=== PATIENT | male | born 1945 | race Caucasian/White ===

== ENCOUNTER 2019-11-03 08:32 | Inpatient (IN) ==
--- NOTE | 2019-10-15 13:29 | History & Physical Report ---
Date of Service October 15, 2019 Assessment & Plan (1) Neurogenic claudication due to lumbar spinal stenosis: At this time patient is failed extensive course of nonoperative care is progressive neurologic decline and inability to ambulate. Subsequently we are recommending L3-S1 lumbar decompression and fusion hopefully will avoid permanent neurologic sequelae. Risk benefits pros cons alternatives were outlined in detail. Present on Admission?: Yes History of Present Illness Chief Complaint: Back with bilateral leg pain and weakness Primary Care Provider: Niranjan Faye, This is a 74-year-old male that presents with worsening back pain with bilateral leg pain and weakness. His ability to stand and ambulate for any distance is compromised secondary to pain and weakness. He has failed extensive course of nonoperative care. Allergies Allergy/AdvReac Type Severity Reaction Status Date / Time Gteiltf-Lvv-Cjb Reductase Allergy Verified 08/10/19 08:02 Inhibitor lisinopril AdvReac Intermediate HIVES/SWELL Verified 08/10/19 08:02 ING Home Medications Home Medications Medication Instructions Recorded Confirmed Type aspirin 81 mg tablet,delayed 81 mg PO DAILY tab 12/24/18 08/10/19 History release carvedilol 12.5 mg tablet 12.5 mg PO BID #180 tab 12/24/18 08/10/19 Rx isosorbide mononitrate 30 mg 30 mg PO DAILY #90 tab 12/24/18 08/10/19 Rx tablet,extended release 24 hr zaqzbgvxuund-ghwbulck-vgujrq 1 tab PO DAILY 12/24/18 08/10/19 History omeprazole 40 mg capsule,delayed 40 mg PO DAILY #90 cap 03/11/19 08/10/19 Rx release blood sugar diagnostic #100 ea 03/19/19 08/10/19 Rx levocetirizine 5 mg tablet 5 mg PO HS #90 tab 06/30/19 08/10/19 Rx metformin 500 mg tablet See Rx Instructions PO BID #270 tab 07/16/19 08/10/19 Rx hydrochlorothiazide 25 mg tablet 25 mg PO DAILY #90 tab 07/21/19 08/10/19 Rx cholestyramine (with sugar) 4 gram 4 gm PO BID #60 ea 08/11/19 Rx powder for susp in a packet terazosin 5 mg capsule 5 mg PO HS #90 cap 08/24/19 Rx lancets 33 gauge #100 ea 09/23/19 Rx diclofenac sodium 50 mg 50 mg PO DAILY PRN #30 tab 09/29/19 Rx tablet,delayed release tramadol 50 mg tablet 50 mg PO Q6H #60 tab 09/29/19 Rx Past Med/Surg History Social History (Updated 04/08/19 @ 08:19 by Caren Denise MA) marital status: Current Living Situation: Spouse current occupational status: retired Smoking Status: Former smoker Tobacco Type: cigarettes ; Hx Alcohol Use: Yes Alcohol type: beer Hx Substance Use: No Dental Care, Regularly: No Physical Activity Frequency: Does not Exercise Seatbelt Use: always Physical Exam Physical Exam: Patient is alert and oriented He ambulates with a stooped posture but must sit after short duration. He exhibits 4+/5 bilateral quadriceps and dorsiflexion. Sensory is symmetric and intact. Deep tendon reflexes are diminished. Heart is regular rate and rhythm Lungs clear to auscultation Results & Data Diagnostic Findings MRI lumbar spine demonstrates significant multilevel spondylosis with significant marked facet hypertrophy most impressive at L3-4 L4-5 and subarticular lateral recess stenosis.
--- NOTE | 2019-10-26 08:15 | Anesthesiology Consultation ---
Date of Service October 26, 2019 Assessment & Plan (1) Encounter for pre-operative examination: Cardiology Clearance 10/14/19 = "From a cardiac standpoint he is asymptomatic. If his aspirin needs to be stopped for his lumbar spine surgery this is reasonable. I see no cardiac contraindication for him proceeding with lumbar surgery." PCP Clearance 10/19/19 -- to be cleared pending results of blood work and CXR. COVID Status: As of 10/20 nurse assessment, patient denies travel to endemic area, known exposure/sick contacts, symptoms, or testing for coronavirus. Patient's son works in [facility]. He visited for Mother's Day, but did not have symptoms and kept 6 ft distance. BMP was not completed pre-op (PRP was run as RPR). Will need to be done AM DOS. Chart Review Chart Review: Acceptable Risk for Surgery (pending final PCP clearance) and Patient NOT seen in Pre Admission Testing History Surgery Operation Date: 11/03/19 12:45 Proposed Procedures p L3-S1 Decompression Fusion, Spinal Cord Monitoring - Sulaiman Argueta DO Height/Weight Height: 5 ft 9 in Weight: 114.759 kg Allergies Allergy/AdvReac Type Severity Reaction Status Date / Time lisinopril Allergy Intermediate HIVES/SWELL Verified 10/21/19 15:41 ING Nnmcjif-Dko-Avj Reductase AdvReac Muscle Pain Verified 10/21/19 15:41 Inhibitor Medications Home Medications Medication Instructions Recorded Confirmed Last Taken aspirin 81 mg tablet,delayed 81 mg PO DAILY tab 12/24/18 10/21/19 Unknown release carvedilol 12.5 mg tablet 12.5 mg PO BID #180 tab 12/24/18 10/21/19 Unknown znznxkievpuc-qildjakg-gsatkv 1 tab PO DAILY 12/24/18 10/21/19 Unknown blood sugar diagnostic #100 ea 03/19/19 10/19/19 Unknown levocetirizine 5 mg tablet 5 mg PO HS #90 tab 06/30/19 10/21/19 Unknown cholestyramine (with sugar) 4 gram 4 gm PO BID #60 ea 08/11/19 10/21/19 Unknown powder for susp in a packet terazosin 5 mg capsule 5 mg PO HS #90 cap 08/24/19 10/21/19 Unknown lancets 33 gauge #100 ea 09/23/19 10/19/19 Unknown diclofenac sodium 50 mg 50 mg PO DAILY PRN #30 tab 09/29/19 10/21/19 Unknown tablet,delayed release Fish Oil 1 cap PO DAILY 10/21/19 10/21/19 Unknown hydrochlorothiazide 25 mg PO QAM 10/21/19 10/21/19 Unknown isosorbide mononitrate 30 mg PO QAM 10/21/19 10/21/19 Unknown metformin 750 mg PO BID 10/21/19 10/21/19 Unknown omeprazole 40 mg PO QAM 10/21/19 10/21/19 Unknown tramadol 50 mg PO Q6H PRN 10/21/19 10/21/19 Unknown turmeric 1 dose PO DAILY 10/21/19 10/21/19 Unknown Past Medical History Medical History (Updated 10/26/19 @ 08:18 by Kevin Montgomery) CAD (coronary artery disease) (Chronic) 2017 cath showed "borderline stenosis in ostial LAD" managed medically. On imdur, no angina. Has been intolerant to statins. DM type 2 (diabetes mellitus, type 2) NIDDM GERD (gastroesophageal reflux disease) Hyperlipidemia Hypertension Osteoarthritis Past Family History Family History Father Hepatic cirrhosis Brother Myocardial infarction Other No family history of adverse response to anesthesia Past Surgical History Surgical History History of cardiac [facility]x [facility] - activity intolerance - no stents - follows w/ Dr. Daniel History of colonoscopy History of hip replacement bilateral History of knee replacement bilateral History of tooth extraction Social History Smoking Status: Former smoker tobacco type: cigarettes Do You Dip or Chew Tobacco: No Smoking End Date: QUIT 30 YEARS AGO Hx Alcohol Use: Yes Alcohol type: beer alcohol intake frequency: a few times a week Hx Substance Use: No substance use type: does not use Testing Laboratory Results 10/19/19 WBC: 5.72 H/H: 14.4/42.1 PLATELETS: 247 PT: 11.4 INR: 1.1 UA: negative Electrocardiogram Date: 10/19/19 Findings: + NSR @ (74bpm) Chest X-Ray Date: 10/21/19 IMPRESSION: 1. Chronic basilar predominant scarring suspected. No acute cardiac pulmonary disease. 2. Mild cardiomegaly without evidence of volume overload.
[~2019-11-03 08:32] MED LIST: ACETAMINOPHEN 500 MG TAB PO SCH; CEFAZOLIN 2000MG 2,000 MG/15 ML SYR IV SCH; CeleBREX 200 MG CAP PO SCH; DEXAMETHASONE SOD INJ 4 MG/ML VIAL ONE; GABAPENTIN 300 MG CAP PO SCH; HYDROmorphone INJ 2 MG/ML SYR/VIAL ONE; LIDOCAINE HCL 2% 2 ML VIAL/AMP(20MG/ML) INFIL ONE; LR 15ML/HR IV SCH; MIDAZOLAM HCL 1 MG/ML 2ML VIAL ONE; ONDANSETRON INJ 2 MG/ML 2 ML VIAL ONE; PROPOFOL IV EMULSION 10 MG/ML 20 ML VIAL IV ONE; ROCURONIUM BROMIDE 10 MG/ML 5 ML VIAL ONE; fentaNYL citrate 100 MCG/2 ML VIAL ONE
--- NOTE | 2019-11-03 09:22 | History & Physical Bridge Note ---
Date of Service November 03, 2019 History & Physical Bridge Note I have examined the patient, reviewed the History & Physical and in the interval since the performance of the History & Physical I have noted the following changes of clinical significance: no changes noted
[2019-11-03] MEDS ORDERED: HYDROmorphone INJ 2 MG/ML SYR/VIAL IV PRN (09:29)
[2019-11-03] MEDS ORDERED: ePHEDrine sulfate 50 MG/ML AMP IV PRN (09:29)
[2019-11-03] MEDS ORDERED: ONDANSETRON INJ 2 MG/ML 2 ML VIAL IV PRN ×2 (09:29→15:40)
[2019-11-03] MEDS ORDERED: ATROPINE SULFATE 0.1 MG/ML 10ML SYR IV PRN (09:29)
[2019-11-03] MEDS ORDERED: fentaNYL citrate 100 MCG/2 ML VIAL IV PRN (09:29)
[2019-11-03] MEDS ORDERED: BUPIVACAINE/EPINEPHRINE 0.25% 1:200,000 30 ML VIAL ONE (09:55)
[2019-11-03] MEDS ORDERED: BACITRACIN INJ 50,000 UNIT VIAL ONE (09:55)
[2019-11-03 10:01] LABS: BUN Creatinine Ratio 10.7 (10-20); Calcium 9.2 mg/dl (8.5-10.1); Creatinine Clr Calc Pharmacy 73.4 ml/min; Est GFR (African American) 78.3; Est GFR (Non-African American) 67.5; Potassium 3.8 mmol/L (3.5-5.1)
[2019-11-03] MEDS ORDERED: FLOSEAL HEMOSTATIC MATRIX 10ML TOP ONE (11:02)
[2019-11-03] MEDS ORDERED: ePHEDrine sulfate 50 MG/ML SYR ONE (11:14)
[2019-11-03] MEDS ORDERED: PHENYLEPHRINE 100MCG/ML 5ML SYR ONE ×2 (11:14→11:16)
[2019-11-03] MEDS ORDERED: NEOSTIGMINE METHYLSULFATE 5 MG/5 ML SYR ONE (11:48)
[2019-11-03] MEDS ORDERED: GLYCOPYRROLATE 0.2 MG/ML VIAL ONE (11:48)
[2019-11-03] MEDS ORDERED: ROCURONIUM BROMIDE 10 MG/ML 5 ML VIAL ONE (11:56)
--- NOTE | 2019-11-03 12:47 | Operative Report ---
Post Operative Report Pre & Post Diagnosis Operation Date: 11/03/19 10:15 Pre-Op Diagnosis: LUMBAR SPINAL STENOSIS W NEUROGENIC CLAUDICATION Post-Op Diagnosis: LUMBAR SPINAL STENOSIS W NEUROGENIC CLAUDICATION I identified the patient and participated in the time-out.: Yes Procedure Operation Date: 11/03/19 10:15 Actual Procedures #1 lumbar decompression with bilateral medial facetectomies and foraminotomies L2-3, L3-4, L4-5 and L5-S1. #2 posterior spinal fusion L3-4, L4-5 and L5-S1. #3 placement posterior segmental instrumentation from L3-S1. #4 interbody fusion L3-4 and L4-5. #5 peek cage 10 x 26 mm at L3-4 and 13 x 26 mm at L4-5 per #6 placement locally harvested morselized autograft in the posterior lateral gutters. #7 placement infuse collagen sponge, master graft in the posterior gutters and ostial amp interbody space. Surgeon Sulaiman Argueta, DO Suction Dredge Dumping Supervisor Jeannie Ledbetter Estimated Blood Loss 300 Findings See Below The patient is 5 foot 9 inches tall weighing over 111 kg with a BMI in excess of 36. The patient's body habitus did add significant technical difficulty adding at least 40% increase to the operative time. Specimens None Indications This is a 74-year-old male that presents with the above-mentioned diagnosis after failing extensive course of nonoperative care is here for surgical intervention. Description of Procedure Patient was met with identified informed consent obtained. Patient was then taken to the operative suite underwent intubation placed in a prone position the Lneard table on top of the Miguel frame. All bony prominences well-padded eyes inspected to ensure no external pressure placed upon them. This point the lumbar spine was prepped and draped in normal sterile fashion. Sharp dissection with the assistance of Bovie cautery performed down to and exposing the lamina and transverse processes of L3-L4-L5 and the sacral ala bilaterally. From caudal cephalad fashion laminectomy of L5 L4 L3 and partial laminectomy of L2 was performed including bilateral medial facetectomies and foraminotomies addressing severe spinal stenosis. Pedicle screws were then placed in L3-L4-L5 and S1 levels bilaterally with assistance of fluoroscopy and appropriately sized jaqueline placed. By way of a transforaminal approach on the right complete discectomy of L4-5 was performed endplates curetted to subcortical bleeding bone and a 13 x 26 mm peek cage filled with osteo-bone graft tapped in position. Then proceeded to L2-[address] of a trans-foramen approach on the right complete discectomy was performed endplates coated to subcortical and bone and a 10 x 26 mm peek cage with osteo-bone graft tapped in position. The rods were then locked into final position bilaterally. The transverse processes of L3-L4-L5 and the sacral ala burred to subcortical bleeding bone. Infuse collagen sponge master graft local autograft placed in the posterior lateral gutters. 15 round ESSIE drain inserted. Incision was then closed with 1 Vicryl in the fascia 2-0 Vicryl subcutaneously and 4 Monocryl for final skin closure. Steri-Strips dressings placed. Patient will continue PACU stable condition. Please note spinal cord monitoring was utilized that the procedure no changes noted. Lastly Jeannie Ledbetter was present at the entire procedure involved the patient positioning complex portions of the surgery and final skin closure. I attest to the content of the Intraoperative Record and any orders documented therein. Any exceptions are noted below.
--- NOTE | 2019-11-03 13:11 | Fluoroscopy Report ---
FL lumbar spine 2-3V CLINICAL HISTORY: L3-S1 DECOMPRESSION AND FUSION COMPARISON STUDY: None FLUOROSCOPY TIME: 31 seconds. NUMBER OF FLUOROSCOPIC IMAGES: 2 FINDINGS: 2 intraoperative fluoroscopic spot images reveal postsurgical changes of L3-4 and L4-5 disc ectomies interbody fusions with L3-S1 pedicle screw spinal fusion IMPRESSION: Postsurgical changes of an L3-S1 spinal decompression and fusion. ACT 112: Negative or not required by law. Electronically signed by: Hair Ray M.D. 11/03/2019 1:10 PM
[2019-11-03] MEDS ORDERED: DO NOT ADMINISTER FLU VACCINE PRN (15:40)
[2019-11-03] MEDS ORDERED: bisacodyL 10 MG SUPP PR PRN (15:40)
[2019-11-03] MEDS ORDERED: ACETAMINOPHEN 1,000 MG/100 ML VIAL IV PRN (15:40)
[2019-11-03] MEDS ORDERED: MAGNESIUM HYDROXIDE SUSP 30 ML UDC PO PRN (15:40)
[2019-11-03] MEDS ORDERED: ALUMINUM/MAGNESIUM SUSP 30 ML UDC PO PRN (15:40)
[2019-11-03] MEDS ORDERED: LORazepam 0.5 MG/1 ML VIAL IV PRN (15:40)
[2019-11-03] MEDS ORDERED: ONDANSETRON 4 MG OD TAB PO PRN (15:40)
[2019-11-03] MEDS ORDERED: METOCLOPRAMIDE HCL INJ 5 MG/ML 2 ML VIAL IV PRN (15:40)
[2019-11-03] MEDS ORDERED: LORazepam 0.5 MG TAB PO PRN (15:40)
[2019-11-03] MEDS ORDERED: DO NOT ADMINISTER PNEUMOCOCCAL VACCINE PRN (15:40)
[2019-11-03] MEDS ORDERED: HYDROmorphone INJ 0.5 MG/0.5 ML SYR IV PRN (15:40)
[2019-11-03] MEDS ORDERED: SOD PHOSPHATE/SOD BIPHOSPHATE ENEMA 132 ML BTL PR PRN (15:40)
[2019-11-03] MEDS ORDERED: PROMETHAZINE HCL 12.5 MG in SODIUM CHLORIDE 0.9% 50 ML IV PRN (15:40)
[2019-11-03] MEDS ORDERED: ACETAMINOPHEN 500 MG TAB PO PRN (15:40)
[2019-11-03] MEDS ORDERED: FAMOTIDINE 20 MG TAB PO PRN (15:40)
[2019-11-03] MEDS ORDERED: NALOXONE HCL 0.4 MG/1 ML VIAL/CARP IV PRN (15:40)
--- NOTE | 2019-11-03 16:33 | Anesthesiology Progress Note ---
Date of Service November 03, 2019 Anesthesia Post Procedure Vital Signs Vital Signs: Temp Pulse Pulse Resp BP Pulse Ox 11/03/19 16:29 36.8 C 93 H 18 139/79 96 11/03/19 15:59 36.2 C L 89 18 156/82 H 95 11/03/19 15:15 82 12 137/74 95 11/03/19 15:00 83 10 L 145/70 H 96 11/03/19 14:45 79 12 144/76 H 93 11/03/19 14:30 77 14 144/77 H 97 11/03/19 14:15 36.7 C 65 12 136/84 97 11/03/19 14:05 74 14 146/77 H 98 11/03/19 13:55 72 10 L 141/67 H 93 11/03/19 13:45 62 12 112/65 97 11/03/19 13:35 62 12 129/71 95 11/03/19 13:25 68 12 131/75 100 11/03/19 13:18 36.1 C L 77 16 132/80 98 11/03/19 09:04 36.8 C 79 20 154/90 H 96 Transfer of Care Handoff Completed per policy Notes Mental Status: alert / awake / arousable and participated in evaluation Patient Amnestic to Procedure: Yes Nausea / Vomiting: adequately controlled Pain: adequately controlled Airway Patency, RR, SpO2: stable & adequate BP & HR: stable & adequate Hydration State: stable & adequate Anesthetic Complications: no major complications apparent and Pt Satisfied with anesthetic care
[2019-11-03] MEDS ORDERED: GLUCOSE 10 TABS/TUBE PO PRN (16:45)
[2019-11-03] MEDS ORDERED: DEXTROSE 50% 50 ML SYRINGE IV PRN (16:45)
[2019-11-03] MEDS ORDERED: CARBOHYDRATES FOR HYPOGLYCEMIA PO PRN (16:45)
[2019-11-03] MEDS ORDERED: GLUCOSE 40% GEL 15 GM TUBE PO PRN (16:45)
[2019-11-03] MEDS ORDERED: GLUCAGON FOR INJ 1 MG VIAL SQ PRN (16:45)
[2019-11-03] MEDS: SODIUM CHLORIDE 0.9% 1000ML 1,000 ML IV SCH ×2 (17:28→23:34)
--- NOTE | 2019-11-03 18:25 | Hospitalist Consultation ---
Date of Consultation November 03, 2019 Assessment & Plan (1) CAD (coronary artery disease): Patient preoperatively is held aspirin will continue on carvedilol and isosorbide as his prehospital doses Patient typically also takes hydrochlorothiazide to help with hypertension. If his blood pressure stable we will continue this medication in the morning however if he has any renal distress or hypotension we will hold this medication (2) DM type 2 (diabetes mellitus, type 2): Patient typically takes metformin for diabetes he is on a diabetic diet currently on clear liquids advancing as tolerated he will be on insulin sliding scale (3) BPH (benign prostatic hyperplasia): Patient will continue Gale and for be BPH (4) DVT prophylaxis: DVT prevention is SCDs due to spine surgery History of Present Illness Attending Physician: Sulaiman Argueta, History of Present Illness Patient is seen postoperatively from L3-S1 decompression fusion by Dr. Argueta for neurogenic claudication of bilateral lower extremities which failed conservative outpatient management. Patient was seen preoperatively by his mechanical facilities technician, Rad Daniel, and given approval for surgery as he does have a known history of coronary disease managed by medications. Patient also is a type II diabetic typically taking oral medications which she has held for the last 7 days. Otherwise the patient does have some BPH taking Terrazosin and but typically having no lower urinary tract symptoms. Postoperatively the patient was awake and alert he had improvement of his pain already he was eating dinner he had no complaints or problems Allergies Allergy/AdvReac Type Severity Reaction Status Date / Time lisinopril Allergy Intermediate HIVES/SWELL Verified 11/03/19 09:14 ING Ioyjigo-Obd-Stx Reductase AdvReac Muscle Pain Verified 11/03/19 09:14 Inhibitor Home Medications Home Medications Medication Instructions Recorded Confirmed Type aspirin 81 mg tablet,delayed 81 mg PO DAILY tab 12/24/18 11/03/19 History release carvedilol 12.5 mg tablet 12.5 mg PO BID #180 tab 12/24/18 11/03/19 Rx dgvresbvpzku-xlwlorxl-zbfooy 1 tab PO DAILY 12/24/18 11/03/19 History blood sugar diagnostic #100 ea 03/19/19 11/03/19 Rx levocetirizine 5 mg tablet 5 mg PO HS #90 tab 06/30/19 11/03/19 Rx cholestyramine (with sugar) 4 gram 4 gm PO BID #60 ea 08/11/19 11/03/19 Rx powder for susp in a packet terazosin 5 mg capsule 5 mg PO HS #90 cap 08/24/19 11/03/19 Rx lancets 33 gauge #100 ea 09/23/19 11/03/19 Rx diclofenac sodium 50 mg 50 mg PO DAILY PRN #30 tab 09/29/19 11/03/19 Rx tablet,delayed release Fish Oil 1 cap PO DAILY 10/21/19 11/03/19 History hydrochlorothiazide 25 mg PO QAM 10/21/19 11/03/19 History isosorbide mononitrate 30 mg PO QAM 10/21/19 11/03/19 History metformin 750 mg PO BID 10/21/19 11/03/19 History omeprazole 40 mg PO QAM 10/21/19 11/03/19 History tramadol 50 mg PO Q6H PRN 10/21/19 11/03/19 History turmeric 1 dose PO DAILY 10/21/19 11/03/19 History Patient History Medical History (Updated 11/03/19 @ 18:25 by Duane Grimes MD) CAD (coronary artery disease) (Chronic) 2016 cath showed "borderline stenosis in ostial LAD" managed medically. On imdur, no angina. Has been intolerant to statins. DM type 2 (diabetes mellitus, type 2) NIDDM GERD (gastroesophageal reflux disease) Hyperlipidemia Hypertension Osteoarthritis Surgical History History of cardiac cath approx 3 years ago - [facility] - activity intolerance - no stents - follows w/ Dr. Daniel History of colonoscopy History of hip replacement bilateral History of knee replacement bilateral History of tooth extraction Family History Father Hepatic cirrhosis Brother Myocardial infarction Other No family history of adverse response to anesthesia Social History (Updated 04/08/19 @ 08:19 by Caren Denise MA) Preferred Language: Tajik Communication Ability: Effective Fan Mail Clerk Required: No Beliefs That Will Affect Care: None marital status: Current Living Situation: Spouse current occupational status: retired Feels Safe at Home: Yes Safety Concerns: Feels Safe At This Time Smoking Status: Former smoker Tobacco Type: cigarettes ; Do You Dip or Chew Tobacco: No ; Smoking End Date: QUIT 30 YEARS AGO ; Second Hand Exposure: Yes (PREVIOUS EXPOSURE AT PLACE OF EMPLOYMENT) ; Tobacco Cessation Education Requested by Patient: No Hx Alcohol Use: Yes Alcohol type: beer Hx Substance Use: No Dental Care, Regularly: No Physical Activity Frequency: Does not Exercise Seatbelt Use: always Review of Systems Review of Systems: Mild distress and fatigue no headache, blurry or double vision no speech or swallowing issues no chest pain, pressure or palpitations no shortness of breath, cough or wheezes no abdominal pain, nausea or vomiting, diarrhea or constipation no dysuria, hematuria or frequency no focal joint pain or swelling mild back pain, CVA tenderness no radicular pain no bruising, bleeding or rashes no focal signs of weakness or numbness or altered sensation no complaints or anxiety or depression. Physical Exam Physical Exam: The patient appeared well Vital signs as documented. Lungs are clear to auscultation and appear unlabored Cardiac exam, Rhythm is regular.. No murmurs, rubs or gallops. Abdominal exam reveals normal bowel sounds, soft non tender, no masses Extremities are nonedematous and both pedal pulses are normal. Neurologic exam is alert and oriented Skin is without bruises or rashes Psychologically is without concerns for anxiety or depression Results & Data Results & Data ([facility] [place]) Vital Signs (Past 12 Hours) Vital Signs Temp Pulse Pulse Resp BP Pulse Ox 11/03/19 17:25 98.6 F 98 H 18 153/80 H 96 11/03/19 16:29 98.2 F 93 H 18 139/79 96 11/03/19 15:59 97.2 F L 89 18 156/82 H 95 11/03/19 15:15 82 12 137/74 95 11/03/19 15:00 83 10 L 145/70 H 96 11/03/19 14:45 79 12 144/76 H 93 11/03/19 14:30 77 14 144/77 H 97 11/03/19 14:15 98.1 F 65 12 136/84 97 11/03/19 14:05 74 14 146/77 H 98 11/03/19 13:55 72 10 L 141/67 H 93 11/03/19 13:45 62 12 112/65 97 11/03/19 13:35 62 12 129/71 95 11/03/19 13:25 68 12 131/75 100 06/03/20 13:18 97.0 F L 77 16 132/80 98 11/03/19 09:04 98.2 F 79 20 154/90 H 96 PG Care Time/CCT Total # of Minutes Spent Total Time Spent with Patient: Total time spent is greater than 50% in coordination of care (as documented) at patient's floor/unit and/or counseling patient: Coding Level of Care Code 72201 Inpt Consult Level 3 Diagnoses CAD (coronary artery disease) I25.10 DM type 2 (diabetes mellitus, type 2) E11.9 BPH (benign prostatic hyperplasia) N40.0 DVT prophylaxis Z29.9
[2019-11-03] MEDS: CEFAZOLIN 2000MG 2,000 MG/15 ML SYR IV SCH (18:35)
[2019-11-03] MEDS: KETOROLAC TROMETHAMINE 15 MG/ML VIAL IV SCH ×3 (18:35→23:35)
[2019-11-03] MEDS: CHOLESTYRAMINE LIGHT 4 GM PKT PO SCH (21:50)
[2019-11-03] MEDS: TERAZOSIN HCL 5 MG CAP PO SCH (21:52)
[2019-11-03] MEDS: carvediloL 12.5 MG TAB PO SCH (21:55)
[2019-11-03] MEDS: INSULIN ASPART 100 UNITS/ML 3 ML PEN SC SCH (22:01)
[2019-11-03] MEDS: DOCUSATE SODIUM/SENNA 50/8.6MG TAB PO SCH (22:05)
[2019-11-04] MEDS: CEFAZOLIN 2000MG 2,000 MG/15 ML SYR IV SCH (01:28)
[2019-11-04] MEDS ORDERED: Nursing to Pharmacy Communication ONE (06:10)
[2019-11-04] MEDS: POLYETHYLENE (MIRALAX) 17 GM PACK PO SCH ×3 (06:14→17:49)
[2019-11-04] MEDS: KETOROLAC TROMETHAMINE 15 MG/ML VIAL IV SCH ×2 (06:14→11:53)
[2019-11-04 06:43] LABS: Basophils # (auto) 0.01 K/uL (0-0.2); Basophils % (auto) 0.1 %; Hematocrit (blood only) 34.1 % (42-52); Immature Granulocytes # (auto) 0.03 K/uL (0.00-0.02); Immature Granulocytes % (auto) 0.2 %; Lymphocytes # (auto) 1.75 K/uL (1.2-3.4); Mean Corpuscular Hemoglobin 30.3 pg (25-34); Mean Corpuscular Hgb Conc 35.2 g/dL (32-36); Mean Corpuscular Volume 86.1 fL (80-100); Mean Platelet Volume 10.4 fL (7.4-10.4); Monocytes # (auto) 1.55 K/uL (0.11-0.59); Monocytes % (auto) 11.5 %; Neutrophils # (auto) 10.13 K/uL (1.4-6.5); Neutrophils % (auto) 75.2 %; Platelet Count 228 K/uL (130-400); RDW Coefficient of Variation 12.3 % (11.5-14.5); RDW Standard Deviation 38.5 fL (36.4-46.3); Red Blood Count 3.96 M/uL (4.7-6.1); White Blood Count 13.47 K/uL (4.8-10.8)
[2019-11-04 07:05] LABS: BUN Creatinine Ratio 12.2 (10-20); Calcium 8.3 mg/dl (8.5-10.1); Creatinine Clr Calc Pharmacy 76.3 ml/min; Est GFR (Non-African American) 70.7; Potassium 3.7 mmol/L (3.5-5.1)
[2019-11-04] MEDS: SODIUM CHLORIDE 0.9% 1000ML 1,000 ML IV SCH (07:08)
--- NOTE | 2019-11-04 08:00 | Hospitalist Progress Note ---
Date of Service November 04, 2019 Assessment & Plan (1) CAD (coronary artery disease): Patient preoperatively is held aspirin will continue on carvedilol and isosorbide as his prehospital doses, likely resume aspirin postoperatively at discharge Patient typically also takes hydrochlorothiazide to help with hypertension. Blood pressures have remained stable (2) DM type 2 (diabetes mellitus, type 2): Patient typically takes metformin for diabetes he is on a diabetic diet currently on clear liquids advancing as tolerated he will be on insulin sliding scale recommending resuming metformin at time of discharge (3) BPH (benign prostatic hyperplasia): Patient will continue Terazosin and for be BPH (4) DVT prophylaxis: DVT prevention is SCDs due to spine surgery Admission and Anticipated Discharge Date Admission Date: November 03, 2019 Medicine will sign off at this time will follow with chart checks daily and will be glad to revisit if any additional medical issues arise Subjective This patient ambulating in the hallways is doing quite well glucoses are controlled hemoglobin is only slightly decreased from presentation otherwise in stable condition Review of Systems Review of Systems: Mild distress and fatigue no headache, blurry or double vision no speech or swallowing issues no chest pain, pressure or palpitations no shortness of breath, cough or wheezes no abdominal pain, nausea or vomiting, diarrhea or constipation no dysuria, hematuria or frequency no focal joint pain or swelling mild back pain persists but very tolerable, no CVA tenderness no radicular pain no bruising, bleeding or rashes no focal signs of weakness or numbness or altered sensation no complaints or anxiety or depression. Physical Exam Physical Exam: The patient appeared well Vital signs as documented. Lungs are clear to auscultation and appear unlabored Cardiac exam, Rhythm is regular.. No murmurs, rubs or gallops. Abdominal exam reveals normal bowel sounds, soft non tender, no masses Extremities are nonedematous and both pedal pulses are normal. Neurologic exam is alert and oriented Skin is without bruises or rashes Psychologically is without concerns for anxiety or depression Results & Data Results & Data ([facility]) Vital Signs (Past 12 Hours) Vital Signs Temp Pulse Resp BP Pulse Ox 11/04/19 07:50 98.4 F 72 18 182/74 H 95 11/04/19 07:05 98.2 F 77 16 170/77 H 93 11/04/19 03:54 98.2 F 85 18 157/73 H 92 11/03/19 23:23 97.9 F 83 18 133/73 93 PG Care Time/CCT Total # of Minutes Spent Total Time Spent with Patient: Total time spent is greater than 50% in coordination of care (as documented) at patient's floor/unit and/or counseling patient: Coding Level of Care Code 21393 Subseq Hosp Care Lvl 2 Diagnoses CAD (coronary artery disease) I25.10 DM type 2 (diabetes mellitus, type 2) E11.9 BPH (benign prostatic hyperplasia) N40.0 DVT prophylaxis Z29.9
[2019-11-04] MEDS: CEROVITE ADV FORMULA TAB PO SCH (08:13)
[2019-11-04] MEDS: carvediloL 12.5 MG TAB PO SCH ×2 (08:13→20:26)
[2019-11-04] MEDS: hydroCHLOROthiazide 25 MG TAB PO SCH (08:13)
[2019-11-04] MEDS: ASPIRIN 81 MG ECTAB PO SCH (08:13)
[2019-11-04] MEDS: ISOSORBIDE MONO EXTENDED REL 30 MG TABCR PO SCH (08:13)
--- NOTE | 2019-11-04 08:33 | Orthopedic Progress Note ---
Date of Service November 04, 2019 Assessment & Plan (1) Neurogenic claudication due to lumbar spinal stenosis: At this time we will continue physical therapy monitor his ESSIE output hopefully discharge home the next few days. Admission and Anticipated Discharge Date Admission Date: November 03, 2019 Subjective Back pain is controlled right leg pain resolved. Physical Exam Physical Exam: Patient is good strength testing appears comfortable. Results & Data ([facility]) Vital Signs (Past 12 Hours) Vital Signs Temp Pulse Resp BP Pulse Ox 11/04/19 08:11 76 173/87 H 11/04/19 07:50 36.9 C 72 18 182/74 H 95 11/04/19 07:05 36.8 C 77 16 170/77 H 93 11/04/19 03:54 36.8 C 85 18 157/73 H 92 11/03/19 23:23 36.6 C 83 18 133/73 93
[2019-11-04] MEDS: PANTOprazole 40 MG TAB PO SCH (08:47)
[2019-11-04] MEDS: INSULIN ASPART 100 UNITS/ML 3 ML PEN SC SCH ×4 (08:47→17:50)
[2019-11-04 09:59] LABS: Estimated Average Glucose 137 mg/dl; Hemoglobin A1C 6.4 % (4.5-5.6)
[2019-11-04] MEDS: CHOLESTYRAMINE LIGHT 4 GM PKT PO SCH ×2 (10:20→22:17)
[2019-11-04] MEDS: TRAMADOL HCL 50 MG TABLET PO PRN (15:43)
[2019-11-04] MEDS: TERAZOSIN HCL 5 MG CAP PO SCH (20:25)
[2019-11-04] MEDS: OXYCODONE HCL IR 5 MG TAB (IMMEDIATE RELEASE) PO PRN (20:33)
[2019-11-04] MEDS: DOCUSATE SODIUM/SENNA 50/8.6MG TAB PO SCH (20:36)
[2019-11-05] MEDS: POLYETHYLENE (MIRALAX) 17 GM PACK PO SCH ×5 (00:22→23:36)
[2019-11-05] MEDS: OXYCODONE HCL IR 5 MG TAB (IMMEDIATE RELEASE) PO PRN ×5 (00:22→20:07)
[2019-11-05] MEDS: HYDROmorphone INJ 1 MG/ML SYRINGE IV PRN ×3 (01:36→11:25)
[2019-11-05] MEDS: INSULIN ASPART 100 UNITS/ML 3 ML PEN SC SCH ×4 (09:03→21:26)
[2019-11-05] MEDS: CEROVITE ADV FORMULA TAB PO SCH (09:07)
[2019-11-05] MEDS: hydroCHLOROthiazide 25 MG TAB PO SCH (09:07)
[2019-11-05] MEDS: ASPIRIN 81 MG ECTAB PO SCH (09:07)
[2019-11-05] MEDS: PANTOprazole 40 MG TAB PO SCH (09:08)
[2019-11-05] MEDS: carvediloL 12.5 MG TAB PO SCH ×2 (09:08→20:07)
[2019-11-05] MEDS: ISOSORBIDE MONO EXTENDED REL 30 MG TABCR PO SCH (09:08)
[2019-11-05] MEDS: CHOLESTYRAMINE LIGHT 4 GM PKT PO SCH ×2 (11:25→21:27)
--- NOTE | 2019-11-05 11:50 | Orthopedic Progress Note ---
Date of Service November 05, 2019 Assessment & Plan (1) Neurogenic claudication due to lumbar spinal stenosis: This time we will continue physical therapy monitor his ESSIE output hopefully discharge home tomorrow. Present on Admission?: Yes Admission and Anticipated Discharge Date Admission Date: November 03, 2019 Subjective Back pain controlled leg symptoms improved Physical Exam Physical Exam: Patient appears comfortable is good strength testing. Results & Data ([facility]) Vital Signs (Past 12 Hours) Vital Signs Temp Pulse Resp BP Pulse Ox 11/05/19 08:08 37.0 C 79 18 141/83 H 92 11/05/19 00:25 36.7 C
[2019-11-05] MEDS: DEXAMETHASONE SOD PHOSPHATE 8 MG in SYRINGE 0 ML IV SCH (12:59)
[2019-11-05] MEDS: TERAZOSIN HCL 5 MG CAP PO SCH (20:06)
[2019-11-05] MEDS: DOCUSATE SODIUM/SENNA 50/8.6MG TAB PO SCH (20:07)
[2019-11-06] MEDS: POLYETHYLENE (MIRALAX) 17 GM PACK PO SCH (05:54)
[2019-11-06] MEDS: OXYCODONE HCL IR 5 MG TAB (IMMEDIATE RELEASE) PO PRN (05:56)
[2019-11-06] MEDS: TRAMADOL HCL 50 MG TABLET PO PRN (08:57)
[2019-11-06] MEDS: ASPIRIN 81 MG ECTAB PO SCH (08:57)
[2019-11-06] MEDS: PANTOprazole 40 MG TAB PO SCH (08:58)
[2019-11-06] MEDS: CEROVITE ADV FORMULA TAB PO SCH (08:58)
[2019-11-06] MEDS: hydroCHLOROthiazide 25 MG TAB PO SCH (08:58)
[2019-11-06] MEDS: carvediloL 12.5 MG TAB PO SCH (08:58)
[2019-11-06] MEDS: ISOSORBIDE MONO EXTENDED REL 30 MG TABCR PO SCH (08:58)
[2019-11-06] MEDS: DEXAMETHASONE SOD PHOSPHATE 8 MG in SYRINGE 0 ML IV SCH (08:59)
[2019-11-06] MEDS: INSULIN ASPART 100 UNITS/ML 3 ML PEN SC SCH (09:02)
[2019-11-06] MEDS: CHOLESTYRAMINE LIGHT 4 GM PKT PO SCH (09:03)
--- NOTE | 2019-11-06 09:49 | Discharge Summary ---
Date of Service November 06, 2019 Admission HPI Per Admitting Provider This is a 74-year-old male that presents with worsening back pain with bilateral leg pain and weakness. His ability to stand and ambulate for any distance is compromised secondary to pain and weakness. He has failed extensive course of nonoperative care. Principal Diagnosis Lumbar spinal stenosis with neurogenic claudication Discharge Data Allergies Allergy/AdvReac Type Severity Reaction Status Date / Time lisinopril Allergy Intermediate HIVES/SWELL Verified 11/03/19 09:14 ING Sitlrbt-Gke-Iax Reductase AdvReac Muscle Pain Verified 11/03/19 09:14 Inhibitor Consultations 11/03/19 15:40 Consult Case Management - Discharge Planning Routine 11/03/19 16:13 Consult Hospitalist Routine Procedures Performed Operation Date: 11/03/19 10:15 Actual Procedures p L3-S1 Decompression Fusion, Spinal Cord Monitoring Interbody fusion L3-4, L4- 5(Not Applicable) - Sulaiman Argueta DO Ordered Studies 11/03/19 10:15 FL fluoroscopy <1hr Routine FL lumbar spine 2-3V Routine Hospital Course (1) Neurogenic claudication due to lumbar spinal stenosis: Patient with lumbar decompression fusion tolerated this well was taken to the orthopedic floor possibly. Postop day 1 he was up and ambulating leg pain improved. Progressed to postop day #2 on postop day 3 ESSIE drain decreased probably. Pain well controlled. Subsequently discharged home. Discharge orders instructions from the chart for further review. Total Time Total Time Spent Total Time Spent (In Minutes): 20 minutes Discharge Plan Discharge Items Patient Disposition: Home - Self-Care Reason For Visit: LUMBAR SPINAL STENOSIS W NEUROGENIC CLAUDICATION Discharge Diagnosis: Lumbar spinal stenosis with neurogenic claudication Activity: As commented below Non-emergency contact: Primary Care Provider Call non-emergency contact if: you have any medication questions Follow-up/Referrals: Niranjan Faye DO [Primary Care Provider] - Diet: Regular Addtl Attending Provider Instructions: ACTIVITY RECOMMENDATIONS: SELF CARE INSTRUCTIONS AFTER THORACIC/LUMBAR FUSIONS 1. You may walk to your tolerance. It is good exercise for your legs and back. Expect some back and intermittent leg aches and pains. 2. You may perform "counter-top" level activities (make a sandwich, lorie with a project, etc.). 3. No bending or lifting of more than 10 pounds or back twisting of any nature (roll like a log when turning in bed). 4. You may ride in a car for 20-30 minutes at a time. No driving until after your first visit with your doctor. 5. Frequent changes of position and restricting sitting to 30 minutes at a time will help limit the amount of back spasms and stiffness you may experience. 6. You may discontinue the use of ambulatory aids (cane, crutches, etc.) once your strength and confidence allow. 7. 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 Do not take a tub bath, sit in a hot tub or go into a swimming pool until after your first recheck in the office. SPECIAL CARE INSTRUCTIONS: VERY IMPORTANT TO READ AND REVIEW A. Your surgical incision has been closed with a cosmetic suture under the skin that will dissolve in about 6 weeks. In 14 days, you can use a pair of clean scissors and cut the suture that is left outside of the skin at the ends of your incision. 1. The small skin tapes can be removed 7 days after surgery if they have not fallen off by that point. 2. You may keep the wound open to air as much as possible to promote healing after post-op day number 5 unless told otherwise by your doctor. 3. If you think the wound looks like it is becoming infected (redness or worsening drainage) and/or you are experiencing fever, chill or worsening back pain and muscle spasms, contact the office so that we may evaluate you as soon as possible. B. Complications are uncommon, but please contact us if you have any signs or symptoms of: 1. wound infection (fever higher than 102.5 degrees F, redness, separation of wound, drainage, or increasing pain from the incision) 2. blood clots in legs (pain, swelling, redness and warmth in legs) 3. urinary tract infection (fever higher than 102.5 degrees F, burning upon urination or increased frequency of urination) 4. nerve problems (inability to walk on your toes or heels, numbness, loss of bowel or bladder control) 5. any other symptoms that concern you C. Please call the office at if you have any concerns or questions about your operation or recovery. D. No smoking! Smoking drastically decreases the chance of a solid fusion. E. Do not take any anti-inflammatory medications (Indocin, Advil, Motrin, Aspirin, Naprosyn, etc.) as these may inhibit the chance of a solid fusion. Tylenol is okay to take for pain. MANAGING PAIN AFTER SPINAL SURGERY 1. Narcotic medication is intended for short-term use and will be provided for surgical pain. Surgical pain usually lasts for a period of 4-6 weeks. Narcotic medication includes Percocet, Vicodin, Darvocet, Tylenol #3 or Lortab. 2. Longer-term pain is more appropriately treated with non-narcotic medication such as Tylenol ES. 3. Muscle spasm is not appropriately treated with narcotics. Muscle relaxers such as Soma, Flexeril or Skelaxin can be used along with Tylenol ES. 4. Remember that we all live with some "aches and pains". This is not unusual or uncommon after an injury or as we get older. a. Back pain is expected and may include muscle spasms for 4 to 6 weeks after surgery. The pain should gradually improve. If the pain worsens for no apparent reason, please contact the office. b. Intermittent leg pain may also be experienced and should not be concerned about unless it worsens for no apparent reason. If so, please contact the office. 5. We will provide appropriate medication within the normal guidelines of their prescribed use. We will also be very cautious and aware of potential abuse and extended duration of patients' medication needs. a. Pain medications are for your comfort and to assist with sleep and rest so that the tissue can heal. They are not provided in order to return to normal activity and should not be used through the day. To do so or worsening pain at night can result from ongoing tissue damage and development of tolerance to the prescribed medicine. 6. Please allow 2-3 days to process refills. Prescriptions will not be mailed but must be picked up at the office. FOLLOW UP VISIT: Keep your scheduled follow-up appointment. Any questions, please call the office at . Pending Studies at Discharge: No Stand-Alone Forms: My [employer], Smoking Cessation Medications and DC Order Prescriptions: New tramadol 50 mg tablet 50 mg PO Q6H PRN (Reason: pain, moderate) Qty: 30 RF: 0 oxycodone 5 mg tablet 5 mg PO Q6H PRN (Reason: pain, severe) Qty: 20 RF: 0 Continued (DME) OneTouch Ultra Blue Test Strip strip See Dose Instructions .ROUTE .MEDSUPPLY Qty: 100 RF: 5 levocetirizine 5 mg tablet 5 mg PO HS Qty: 90 RF: 3 cholestyramine (with sugar) 4 gram powder in packet 4 gm PO BID Qty: 60 RF: 5 terazosin 5 mg capsule 5 mg PO HS Qty: 90 RF: 1 (DME) lancets [OneTouch Delica Lancets] 33 gauge misc See Rx Instructions .ROUTE .MEDSUPPLY Qty: 100 RF: 5 diclofenac sodium 50 mg tablet,delayed release (DR/EC) 50 mg PO DAILY PRN (Reason: pain) Qty: 30 RF: 3 aspirin 81 mg tablet,delayed release (DR/EC) 81 mg PO DAILY RF: 0 rpaevnazrkwn-wdyxscnf-lipdlb tablet 1 tab PO DAILY RF: 0 carvedilol 12.5 mg tablet 12.5 mg PO BID Qty: 180 RF: 1 metformin 500 mg tablet 750 mg PO BID RF: 0 isosorbide mononitrate 30 mg tablet extended release 24 hr 30 mg PO QAM RF: 0 omeprazole 40 mg capsule,delayed release(DR/EC) 40 mg PO QAM RF: 0 tramadol 50 mg tablet 50 mg PO Q6H PRN (Reason: Pain) RF: 0 hydrochlorothiazide 25 mg tablet 25 mg PO QAM RF: 0 Fish Oil 1 cap PO DAILY RF: 0 turmeric 1 dose PO DAILY RF: 0 Discharge Orders: Discharge Order (Routine); Ordered 11/06/19 Ordered By: Sulaiman Argueta Admission Data Admit Date/Time: 11/03/19 13:27 Attending Provider: Sulaiman Argueta Admit Provider: Sulaiman Argueta Primary Care Provider: Niranjan Faye Other Providers: Duane Grimes ; Louise Jones Other Interventions: Discharge Summary Assessment (RN) Last Done: 11/06/19 09:38
== END 2019-11-06 12:09 | disposition home or self-care (01) | DRG 455 ==
LOC: ASU 08:32 → 3N 13:27